=== PATIENT | male | born 1945 | race Caucasian/White ===

== ENCOUNTER 2019-10-20 09:30 | Outpatient (CLI) | payer MEDICARE, OTHER | END 2019-10-20 23:59 | disposition home or self-care (01) | LOC: COV 09:30 | PROVIDERS: ATTEND Family Medicine | DX: R05 Cough (principal); M79.10 Myalgia, unspecified site; R53.83 Other fatigue; R68.83 Chills (without fever) | CPT/HCPCS: 81599 ==

== ENCOUNTER 2020-05-18 17:32 | Outpatient (CLI) | payer MEDICARE | END 2020-05-18 17:33 | disposition home or self-care (01) | LOC: COV 17:32 | PROVIDERS: ATTEND Family Medicine | DX: M79.10 Myalgia, unspecified site (principal); R53.83 Other fatigue; R19.7 Diarrhea, unspecified; Z20.828 Contact with and (suspected) exposure to other viral communicable diseases ==

== ENCOUNTER 2022-06-04 12:08 | Outpatient (CLI) | payer MEDICARE | END 2022-06-04 12:09 | disposition E | LOC: EMS 12:08 ==